=== PATIENT | female | born 1955 | race Caucasian/White ===

== ENCOUNTER → 2017-08-05 | Outpatient (CLI) | payer OTHER | LOC: FIMAGING 15:53 | PROVIDERS: ATTEND Family Medicine | DX: Z12.31 Encounter for screening mammogram for malignant neoplasm of breast (principal) | CPT/HCPCS: G0202 ==

== ENCOUNTER → 2018-08-06 | Outpatient (CLI) | payer OTHER | LOC: FIMAGING 07:42 | DX: Z12.31 Encounter for screening mammogram for malignant neoplasm of breast (principal) ==